=== PATIENT | male | born 1955 | race Caucasian/White ===

== ENCOUNTER 2021-04-08 15:55 | Emergency (ER) | payer BC ==
[2021-04-08] MEDS ORDERED: TRULICITY0.75 MG/0. SC (16:17)
[2021-04-08] MEDS ORDERED: NORFLEX 10100 MG/TAB PO (16:17)
[2021-04-08] MEDS ORDERED: PREGABALIN75 MG PO (16:17)
[2021-04-08] MEDS ORDERED: RAMIPRIL10 MG PO (16:17)
[2021-04-08 16:48] VITALS: BP 144/100
== END 2021-04-08 16:45 | disposition home or self-care (01) ==
LOC: ED 15:55
DX: S61.412A Laceration without foreign body of left hand, initial encounter (principal); W26.8XXA Contact with other sharp object(s), not elsewhere classified, initial encounter
CPT/HCPCS: 90714